=== PATIENT | female | born 1990 | race Caucasian/White ===

== ENCOUNTER → 2017-10-12 12:52 | Outpatient (CLI) | payer BC, SELFPAY | PROVIDERS: Family Provider Internal Medicine; PCP Internal Medicine; Visit Provider Nurse Practitioner Primary Care | DX: R07.9 Chest pain, unspecified (principal); R00.2 Palpitations | CPT/HCPCS: 93225; 93226 ==

== ENCOUNTER → 2018-07-05 09:50 | Outpatient (CLI) | payer BC, SELFPAY ==
--- NOTE | 2018-07-05 09:55 | ART_ITS ---
Reason For Study: Atherosclerosis Procedure A bilateral lower extremity continuous wave Doppler with analog waveform analysis and ankle brachial indexes. Left Segmental Pressures Left brachial= 135mmHg. Left posterior tibial artery = 168mmHg. Left dorsalis pedis artery = 158mmHg. Right Segmental Pressures Right brachial= 124mmHg. Right posterior tibial artery = 156mmHg. Right dorsalis pedis artery = 145mmHg. Indices The right ankle brachial index by the posterior tibial artery is 1.16. The right ankle brachial index by the dorsalis pedis is 1.07. The left ankle brachial index by the posterior tibial artery is 1.24. The left ankle brachial index by the dorsalis pedis is 1.17. Interpretation Summary 1. bilateral legs with no evidence of occlussive disease with triphasic flow and CONCETTA 1.16/1.24. Ordering Physician: Chai Mcarthur Referring Physician: Chai Mcarthur Performed By: Jessica Leyva RDCS/RVT
--- NOTE | 2018-07-05 09:55 | VDLE_ITS ---
Reason For Study: Pain and Swelling RIGHT LEFT GSV is normal. CFV is compressible, spontaneous, phasic, CFV is compressible, spontaneous, phasic, competent, and demonstrates normal competent and demonstrates normal augmentation. augmentation. FV is compressible, spontaneous, phasic, FV is compressible, spontaneous, phasic, competent and demonstrates normal competent and demonstrates normal augmentation. augmentation. POP V is compressible, spontaneous, phasic, POP V is compressible, spontaneous, phasic, competent and demonstrates normal competent and demonstrates normal augmentation. augmentation. T/P Trunk is compressible. T/P Trunk is compressible. PTV is compressible. PTV is compressible. LT PerV is compressible. RT PerV is compressible. Lt SFJ is Incompetent Rt SFJ is Competent Lt GSV is Incompetent with reflux greater Rt GSV is Competent than 0.5 sec and a diameter of 0.45cm x 0.36cm in the thigh and 0.12cm x 0.11cm in Rt SSV is Competent. the calf Procedure Exam performed in department. Lt SSV is Competent. A preliminary report was called and/or faxed to Dr. Mcarthur. Interpretation Summary 1. No DVT or SVt bilaterally. 2. Left GSV 4.5mm and reflux. Ordering Physician: Chai Mcarthur Referring Physician: Joselin Briscoe Performed By: Jessica Leyva, MARTINEZ, RVT
== END ==
PROVIDERS: Family Provider Internal Medicine; PCP Internal Medicine; Referring Provider Surgery Vascular Surgery; Visit Provider Surgery Vascular Surgery
DX: I70.213 Atherosclerosis of native arteries of extremities with intermittent claudication, bilateral legs (principal); M79.89 Other specified soft tissue disorders; M79.609 Pain in unspecified limb
CPT/HCPCS: 93922; 93970

== ENCOUNTER 2023-10-25 06:38 | Emergency (ER) | payer BC, SELFPAY ==
[2023-10-25 06:39] VITALS: BP 142/96; PULSE 111; RESP 16; TEMP 35.8; O2SAT 98
--- NOTE | 2023-10-25 07:06 | EX.ED.DYSGE1 ---
HPI History of Present Illness Chief Complaint: Abd Pain Informant: patient and spouse/S.O. Narrative Narrative: 32-year-old female presenting to the emergency room with chief complaint of right lower abdominal pain. Patient states that about 4 weeks ago she broke her foot while on vacation. This is treated nonoperatively in a boot. She notes that she was recently noticing blood in the urine was diagnosed with a UTI was on medication for 5 days which she finished last week. She states that she has continued to see blood in the urine is due to see [facility] urology in [place] tomorrow. She states that last night around 2300 hrs. she developed pain suprapubic just to the right side. Described as sharp and stabbing waxing and waning. No history of ureterolithiasis with her or with family members. She notes a prior history of a and history of PCOS. She has never required surgical intervention for her ovarian cyst. She denies any change in bowel movements. She notes her last bowel movement was this morning and was normal. She states that she had a fever over the weekend which resolved. She does note some intermittent radiation of the pain to her right flank. [facility] Medical History (Updated 10/25/23 @ 08:[address] Moses Santos DO) PCOS (polycystic ovarian syndrome) Hypertension Home Medications ?Medication ?Instructions ?Recorded ?Last Taken ?Type metoprolol succinate 25 mg 1 tab PO DAILY 09/19/16 Unknown History tablet,extended release 24 hr ketorolac 10 mg tablet 10 mg PO Q8H PRN pain #15 tabs 10/25/23 Unknown Rx metformin 500 mg tablet 1,000 mg PO BID 10/25/23 Unknown History ondansetron 4 mg disintegrating 4 mg PO Q6H PRN PRN Nausea #10 tabs 10/25/23 Unknown Rx tablet oxycodone-acetaminophen 5 mg-325 1 tab PO Q6H PRN PRN Pain 3 days 10/25/23 Unknown Rx mg tablet #12 TABLETS Allergy/AdvReac Type Severity Reaction Status Date / Time No Known Allergies Allergy Verified 10/25/23 06:44 Surgical History (Updated 10/25/23 @ 07:[address] Moses Santos DO) Delivery by section Social History Smoking Status: Never smoker ROS ROS ED Constitutional Constitutional ED: Reports fever(s); Denies chills or weight loss Eyes Eyes: Denies change in vision or diplopia ENT ENT ED: Denies ear pain, rhinorrhea or sore throat Cardiovascular Cardiovascular: Denies chest pain, orthopnea, palpitations or racing heartbeat Respiratory/Chest Respiratory/Chest: Denies cough, dyspnea or orthopnea Gastrointestinal Gastrointestinal: Reports abdominal pain; Denies diarrhea, nausea or vomiting Genitourinary Genitourinary ED: Reports hematuria; Denies dysuria or urinary frequency Musculoskeletal Musculoskeletal: Reports back pain; Denies arthralgias or myalgias Integumentary Denies abscess or rash Neurologic Neurologic: Denies headache(s) or weakness Psychiatric Psychiatric: Denies anxiety, depression, suicidal ideation or suicidal thoughts Endocrine Endocrinology: Denies polydipsia, polyphagia or polyuria Allergic/Immunologic Allergic/Immunologic ED: Denies mouth swelling, tongue swelling or urticaria EXAM Physical Exam Const Vital Signs: 10/25/23 06:39 10/25/23 08:39 10/25/23 09:05 Temperature 96.5 F L 98 F Temperature Source Temporal Pulse Rate 111 H 90 84 Respiratory Rate 16 18 16 Blood Pressure 142/96 H 124/82 H 115/68 Blood Pressure Mean 111 96 83 Pulse Ox 98 99 99 Oxygen Delivery Method Room Air Room Air Positive well nourished and well developed General Appearance ED: well developed HEENT Reports normocephalic, head/scalp atraumatic and moist mucous membranes Eyes PERRL and EOMs intact bilaterally Neck no lymphadenopathy, supple and no JVD Resp normal respiratory effort and clear to auscultation bilaterally Cardio regular rate, regular rhythm and no murmurs GI Inspection: Negative for abdominal distention Auscultation: normoactive bowel sounds Palpation: soft and tender RLQ and suprapubic; Negative for guarding or rebound tenderness present Back/Spine no CVA tenderness and normal ROM Extremity normal to inspection General Extremety ED: Negative for edema General Extremity: Negative for edema Neuro oriented x3 and CN's II-XII intact bilaterally Sensorium / Orientation: alert Motor Exam: strength 5/5 throughout Psych mental status grossly normal Mood & Affect: Negative for depressed or tearful Skin no rashes or lesions noted and no wounds MDM MDM MDM Narrative Medical decision making narrative: Differential diagnosis includes but not limited to ureterolithiasis appendicitis ovarian cyst ovarian torsion tubo-ovarian abscess cystitis pyelonephritis White count 7.4 normal differential creatinine normal LFTs show slight elevation in the AST and ALT. test is negative. Urinalysis with gross hematuria greater than 101+ bacteria 0-5 white cells 0-[address] Negative nitrates[address] of the abdomen pelvis demonstrates a distal ureteral stone. Patient was treated with IV fluids morphine Zofran and Toradol. She feels significant improvement. Patient has a follow-up appointment tomorrow with urology already scheduled. I can write for some Percocet Toradol and Zofran. Would recommend urologic follow-up return if worsening or concerns patient notes understanding of the plan History & Record Review Discussion w/independent historian: Patient and Significant other Lab Data Attestation: I reviewed the patient's lab results. Labs: Laboratory Results - last 24 hr 10/25/23 10/25/23 06:42 07:20 WBC 7.4 RBC 4.51 Hgb 13.6 Hct 39.6 MCV 87.8 MCH 30.2 MCHC 34.3 RDW Std Deviation 41.1 RDW Coeff of Tina 12.9 Plt Count 327 MPV 9.6 Immature Gran % (Auto) 0.300 Neut % (Auto) 52.9 Lymph % (Auto) 39.3 Eddy % (Auto) 5.7 Eos % (Auto) 1.5 Baso % (Auto) 0.3 Absolute Neuts (auto) 3.9 Absolute Lymphs (auto) 2.91 Nucleated RBC % 0 Sodium 136 Potassium 3.3 L Chloride 103 Carbon Dioxide 25.0 Anion Gap 8 BUN 12 Creatinine 0.74 Est GFR (MDRD) Af Amer 116 Est GFR (MDRD) Non-Af 96 BUN/Creatinine Ratio 16.2 Glucose 106 Calcium 9.1 Total Bilirubin 0.40 Direct Bilirubin 0.18 AST 40 H ALT 59 H Alkaline Phosphatase 78 Total Protein 7.9 Albumin 3.8 Globulin 4.1 Lipase 59 Serum , Qual NEGATIVE Urine Color Brown Urine Clarity Turbid Urine pH 6.5 Ur Specific [place] 1.020 Urine Protein 500 H Urine Glucose (UA) Normal Urine Ketones 5 H Urine Occult Blood 250 H Urine Nitrite Negative Urine Bilirubin Negative Urine Urobilinogen Normal Ur Leukocyte Esterase 25 H Urine RBC > 100 SEEN Urine WBC 0-5 SEEN Ur Squamous Epith Cells 0-5 SEEN Urine Bacteria 1+ Urine Mucus 0 SEEN Radiography Diagnostic Testing: Clinical Impression(s) from Imaging Studies Abdomen/Pelvis CT 10/25/23 07:55 IMPRESSION: 5.1 mm calculus at the right ureterovesical junction causing right hydronephrosis and right hydroureter. Electronically Signed: Adrian Solo MD at 8:41 EDT , Discharge Plan Triage Chief Complaint: Abd Pain ED Provider: Moses Santos Dx/Rx/DC Orders Clinical Impression: Ureterolithiasis, Abdominal pain, Hematuria Instructions: ED Kidney Stone with Pain Prescriptions: New ketorolac 10 mg tablet 10 mg PO Q8H PRN (Reason: pain) Qty: 15 0RF Rx Instructions: maximum total duration of 5 days from all oral, intranasal, or parenteral formulations oxycodone-acetaminophen 5-325 mg tablet 1 tab PO Q6H PRN PRN (Reason: Pain) 3 Days Qty: 12 0RF ondansetron 4 mg tablet,disintegrating 4 mg PO Q6H PRN PRN (Reason: Nausea) Qty: 10 0RF No Action metoprolol succinate 25 MG tablet 1 tab PO DAILY Patient Comments: metformin 500 mg tablet 1,000 mg PO BID Primary Care Provider: SEBASTIAN HENLEY Referrals: Joselin Briscoe MD [Med Staff - Super[employer]] - Activity Restrictions/Additional Instructions: Please keep your appointment with the urologist as scheduled tomorrow. Please return if you are worsening, having uncontrolled pain, fever, or concerns Print Language: Pashto Disposition Disposition: Home, Self Care Discharge Date/Time: 10/25/23 09:13
[2023-10-25 07:26] LABS: Absolute Lymphocyte Count 2.91 X10^3/uL (0.83-4.51); Absolute Neutrophil Count 3.9 X10^3/uL (2.0-7.7); Basophil# 0.02 X10^3/uL; Basophil% 0.3 % (0-1); Eosinophil# 0.11 X10^3/uL; Eosinophils% 1.5 % (0-5); Hematocrit 39.6 % (37-47); Hemoglobin 13.6 g/dL (12.0-15.0); Lymphocyte # 2.91 X10^3/ul (0.83-4.51); Lymphocyte % 39.3 % (19-41); Mean Corp Hgb Conc 34.3 g/dL (32-36); Mean Corpuscular Hgb 30.2 pg (27.0-32.0); Mean Corpuscular Volume 87.8 fL (81-99); Mean Platelet Vol. 9.6 fl (6.2-12.0); Monocyte# 0.42 X10^3/uL; Monocyte% 5.7 % (0-10); NRBC Flagged by Analyzer 0 % (0-5); Neutrophil # 3.93 X10^3/uL (2.7-7.7); Neutrophil % 52.9 % (47-70); Platelet Count 327 K/mm3 (150-450); RBC Distribution Width CV 12.9 % (11.6-14.6); RBC Distribution Width SD 41.1 fl (35.1-43.9); Red Blood Count 4.51 M/mm3 (4.2-5.4); White Blood Count 7.4 K/mm3 (4.4-11.0)
[2023-10-25] MEDS: Ondansetron 4 MG/2 ML Vial IV (07:27)
[2023-10-25] MEDS: Morphine 4 MG/ML Syringe IV (07:27)
[2023-10-25] MEDS: 0.9% Normal Saline (1000mL) 1,000 ML 250 ML IV ×2 (07:29→08:26)
[2023-10-25 07:33] LABS: Mucous, Urine 0 SEEN /hpf (<or=2+)
[2023-10-25 07:37] LABS: Color, Urine Brown (Yellow); Glucose, Dipstick Normal (Normal); Ketone-Dipstick 5 mg/dl (Negative); Leukocyte Esterase-Dipstick 25 /ul (Negative); Nitrite-Dipstick Negative (Negative); Occult Blood-Urine 250 /ul (Negative); Protein-Dipstick 500 mg/dl (Negative); Urine Bilirubin Dipstick Negative (Negative); Urine Clarity Turbid (Clear); Urine Urobilinogen Normal (Normal); Urine pH 6.5 (5.0 - 8.0)
[2023-10-25 07:44] LABS: AST(SGOT) 40 U/L (15-37); Alanine Aminotransfer ALT/SGPT 59 U/L (13-56); Albumin, Serum 3.8 g/dL (3.2-5.0); Alkaline Phosphatase 78 U/L (45-117); Anion Gap 8 (5-15); BUN 12 mg/dL (7-18); BUN/Creat Ratio 16.2 RATIO (10-20); Bilirubin, Direct 0.18 mg/dL (0.00-0.30); Calcium,Total 9.1 mg/dL (8.5-10.1); Chloride 103 mmol/L (98-107); Creatinine, Serum 0.74 mg/dL (0.55-1.02); EST Glomerular Filtration Rate 96 mL/min (>60); Est Glom Filt Rate - Afr Amer 116 mL/min (>60); Globulin 4.1 g/dL (2.2-4.2); Glucose 106 mg/dL (74-106); Lipase 59 U/L (13-75); Potassium 3.3 mmol/L (3.5-5.1); Protein, Total 7.9 g/dL (6.4-8.2); Sodium Level 136 mmol/L (136-145)
[2023-10-25 07:47] LABS: Internal QC Validated? YES +Cl - CLEAR BKGD; Pregnancy, Serum, hCG Quali. NEGATIVE Negative
[2023-10-25 07:50] LABS: Bacteria 1+ /hpf (None Seen); Red Blood Cells-Urine > 100 SEEN /hpf (0-5); Squamous Epithelial Cells - UA 0-5 SEEN /hpf (5-10); White Blood Cells 0-5 SEEN /hpf (0-5)
--- NOTE | 2023-10-25 07:55 | CT_ITS ---
STUDY: CT ABDOMEN AND PELVIS WITHOUT CONTRAST REASON FOR EXAM: Female, 32 years old. Kidney stone, RLQ pain and hematuria RADIATION DOSAGE (If Supplied By Facility): CTDIvol = ( 21.32 ) mGy, DLP = ( 1102.63 ) mGycm TECHNIQUE: Transaxial images were obtained from the dome of the diaphragm to the symphysis pubis without oral contrast, and without intravenous contrast. Sagittal and coronal images were reconstructed. Individualized dose optimization techniques were used for this CT. COMPARISON: None. FINDINGS: The visualized lung bases are unremarkable. The visualized portions of the heart are within normal limits. Normal liver. Normal gallbladder and extrahepatic biliary system. Normal spleen. Normal pancreas. Normal bilateral adrenal glands. Mild degree of right hydronephrosis and hydroureter due to a 5.1 mm calculus at the right ureterovesical junction. Normal left kidney. Normal visualized stomach. Normal small intestine. There are scattered colonic diverticula consistent with diverticulosis. The appendix is visualized and appears normal. Normal abdominal aorta. Normal inferior vena cava. Normal retroperitoneum. Increased markings are seen in the mesenteric fat of the root of the mesentery with small lymph nodes suggestive of a mesenteric adenitis. Normal urinary bladder. There is a small umbilical hernia containing fat. Normal osseous structures. CT/Abdomen/Pelvis without Cont IMPRESSION: 5.1 mm calculus at the right ureterovesical junction causing right hydronephrosis and right hydroureter. Electronically Signed: Adrian Solo MD at 8:41 EDT ,
[2023-10-25] MEDS: Ketorolac 30 MG/ML Syringe IV (08:25)
[2023-10-25 08:39] VITALS: BP 124/82; PULSE 90; RESP 18; O2SAT 99
[2023-10-25 09:05] VITALS: BP 115/68; PULSE 84; RESP 16; TEMP 36.6; O2SAT 99
== END 2023-10-25 09:13 | disposition home or self-care (01) ==
PROVIDERS: Emergency Provider Emergency Medicine; PCP Nurse Practitioner; Visit Provider Emergency Medicine
DX: N13.2 Hydronephrosis with renal and ureteral calculous obstruction (principal); R31.0 Gross hematuria; I10 Essential (primary) hypertension; Z79.899 Other long term (current) drug therapy
CPT/HCPCS: 74176; 80048; 80076; 81001; 83690; 84703; 85025; 96361; 96374; 96375; 99282; J7030; J2405